=== PATIENT | male | born 1990 | race Caucasian/White ===

== ENCOUNTER 2021-08-05 15:12 | Emergency (ER) | payer SELFPAY ==
--- NOTE | 2021-08-05 15:52 | EDM.PDOC ---
ED HPI GENERAL MEDICAL PROBLEM - General Chief Complaint: General Stated Complaint: PAIN IN RIGHT SHOULDER Time Seen by Provider: 08/05/21 15:30 - History of Present Illness INITIAL COMMENTS - FREE TEXT/NARRATIVE: Pt comes to the ER with C/O mid back pain as well as a rash in the Rt arm pit area. Started 2 days ago. No injury to the area. He has not been sick - No fever. ED ROS GENERAL - Review of Systems Review Of Systems: Comprehensive ROS is negative, except as noted in HPI. Musculoskeletal: Reports: Back Pain Skin: Reports: Rash ED EXAM, GENERAL - Physical Exam Exam: See Below Skin Exam: Zoster-Like Rash (starting in the mid back and radiating around the torso to the front. Going thru the Rt axilla. Multiple scabs are present.) Course - Vital Signs Last Recorded V/S: Last Vital Signs Temp 98.0 F 08/05/21 15:40 Pulse 94 08/05/21 15:40 Resp 14 08/05/21 15:40 BP 117/93 H 08/05/21 15:40 Pulse Ox 98 08/05/21 15:40 - Re-Assessments/Exams Free Text/Narrative Re-Assessment/Exam: 08/05/21 15:50 Acyclovir and Neurontin will be started. He can take Tylenol prn as well. I discussed the possibility of PHN. He was informed he could pass chicken pox to someone from his current illness, but not Zoster. Departure - Departure Time of Disposition: 15:45 Disposition: Home, Self-Care 01 Condition: Good Clinical Impression: Shingles outbreak Qualifiers: Herpes zoster complications: without complications Qualified Code(s): B02.9 - Zoster without complications - Discharge Information *PRESCRIPTION DRUG MONITORING PROGRAM REVIEWED*: No *COPY OF PRESCRIPTION DRUG MONITORING REPORT IN PATIENT JOANNE: No Instructions: Shingles, [id number] Referrals: PCP,None [Primary Care Provider] - Forms: ED Department Discharge Care Plan Goals: Take medication as prescribed. Follow up in clinic later this week. Sepsis Event Note (ED) - Focused Exam Vital Signs: Vital Signs Temp Pulse Resp BP Pulse Ox 08/05/21 15:40 98.0 F 94 14 117/93 H 98
== END 2021-08-05 15:45 | disposition home or self-care (01) ==
LOC: LB.ED 15:12
DX: B02.9 Zoster without complications (principal)
CPT/HCPCS: 99283